=== PATIENT | female | born 1995 | race Caucasian/White ===

== ENCOUNTER → 2018-07-06 04:08 | Emergency (ER) | payer BC ==
--- NOTE | 2018-07-06 04:33 | ED ---
Skin Complaint - HPI Summary HPI Summary: Pt is a 23 year old F presenting to the ED with a chief complaint of a skin lesion that she has had for two months that has been getting bigger and continuously bleeding. The lesion was removed about a month ago at [facility] (cardoso angioma), but it grew back and she is concerned about its growth. - History of Current Complaint Chief Complaint: EDRashSkinAbscess Time Seen by Provider: 07/06/18 04:16 Stated Complaint: SKIN IRRATATION BETWEEN BREASTS Hx Obtained From: Patient Hx Last Menstrual Period: 2 weeks ago Onset/Duration: Started Weeks Ago, Still Present Timing: Constant Onset Severity: Moderate Current Severity: Moderate Pain Intensity: 5 Pain Scale Used: 0-10 Numeric Skin Location: Chest - between breasts Character: Redness, Raised, Painful Aggravating Symptom(s): Touch Alleviating Symptom(s): Nothing - Allergy/Home Medications Allergies/Adverse Reactions: Allergies Allergy/AdvReac Type Severity Reaction Status Date / Time No Known Allergies Allergy Verified 07/06/18 04:17 Home Medications: Home Medications NK [No Home Medications Reported] 07/06/18 [History Confirmed 07/06/18] PMH/Surg Hx/FS Hx/Imm Hx Previously Healthy: Yes Endocrine/Hematology History: Denies: Hx Anticoagulant Therapy History: Denies: Hx Chronic Renal Failure - Surgical History Surgery Procedure, Year, and Place: denies Infectious Disease History: No Infectious Disease History: Denies: Hx Clostridium Difficile, Hx Hepatitis, Hx Human Immunodeficiency Virus (HIV), Hx of Known/Suspected MRSA, Hx Shingles, Hx Tuberculosis, Hx Known/ Suspected VRE, Hx Known/Suspected VRSA, History Other Infectious Disease, Traveled Outside the [place] in Last 30 Days - Family History Known Family History: Negative: Diabetes, Blood Disorder - Social History Alcohol Use: Rare Substance Use Type: Reports: None Smoking Status (MU): Current Some Day Smoker Review of Systems Negative: Fever Positive: Other - lesion in between breasts All Other Systems Reviewed And Are Negative: Yes Physical Exam - Summary Physical Exam Summary: Appearance: Well-appearing, Well-nourished, lying in bed comfortable Skin: Lobulated pedunculated lesion between breasts about the size of a pea Eyes: sclera anicteric, no conjunctival pallor ENT: mucous membranes moist Neck: deferred Respiratory: No signs of respiratory distress Cardiovascular: Appears well perfused, pulses are nml Abdomen: deferred Musculoskeletal: Moving all 4 extremities without obvious discomfort Neurological: Awake and alert, mentation is normal, speech is fluent and appropriate Psychiatric: affect is normal, does not appear anxious or depressed Triage Information Reviewed: Yes Vital Signs On Initial Exam: Initial Vitals Temp Pulse Resp BP Pulse Ox 98.0 F 72 18 140/78 100 07/06/18 04:12 07/06/18 04:12 07/06/18 04:12 07/06/18 04:12 07/06/18 04:12 Vital Signs Reviewed: Yes Diagnostics - Vital Signs Vital Signs Temp Pulse Resp BP Pulse Ox 07/06/18 04:12 98.0 F 72 18 140/78 100 - Laboratory Lab Statement: Any lab studies that have been ordered have been reviewed, and results considered in the medical decision making process. Course/Dx - Course Course Of Treatment: Pt is a 23 year old F who presented to ED with a chief complaint of a lesion in between her breasts that she has tried to get removed in the past and it only grew back larger. The pt is frustrated and wants it removed. Her condition is stable. - Diagnoses Provider Diagnoses: Superficial granulomatous pyoderma Discharge - Sign-Out/Discharge Documenting (check all that apply): Patient Departure - Discharge Plan Condition: Stable Disposition: HOME Referrals: Christophe Thurston MD [Medical Doctor] - Additional Instructions: The skin lesion will need to be removed by surgical excision, as it has recurred after shave excision. Our general surgeons can do that for you in the office, just call for an appt. - Billing Disposition and Condition Condition: STABLE Disposition: Home - Attestation Statements Document Initiated by Isaakibe: Yes Documenting Scribe: Marleni West Provider For Whom Josefina is Documenting (Include Credential): Mu Alvarez MD. Scribe Attestation: Marleni Pillai, donnieed for Mu Alvarez MD. on 07/06/18 at 0647. Scribe Documentation Reviewed: Yes Provider Attestation: The documentation as recorded by the scribe, Marleni West accurately reflects the service I personally performed and the decisions made by me, Mu Alvarez MD. Consult Consult: [id number] - Spoke with Christophe Thurston MD., about the patient's current disposition, and clarified with him that she would be able to get an appointment relatively quickly upon contacting his office. He confirmed and agreed to take the lesion off.
[2018-07-06 05:38] VITALS: BP 129/75
== END | disposition home or self-care (01) ==
LOC: ED 04:08
DX: L08.0 Pyoderma (principal); F17.200 Nicotine dependence, unspecified, uncomplicated
CPT/HCPCS: 99282